=== PATIENT | male | born 1995 ===

== ENCOUNTER 2019-02-03 11:26 | Day surgery (SDC) | payer OTHER ==
[~2019-02-03] VITALS: Ht 176.5 cm; Wt 71.7 kg
[2019-02-03] VITALS (10 sets, daily range): BP systolic 118–132; BP diastolic 48–75
--- NOTE | 2019-02-03 07:58 | Pre-Procedure Note/Attestation ---
Pre-Procedure Note/Attestation Complete Prior to Procedure Planned Procedure: right Procedure Narrative: painful hardware Indications for Procedure Pre-Operative Diagnosis: removal painful hardware right knee Attestation I attest that I discussed the nature of the procedure; its benefits; risks and complications; and alternatives (and the risks and benefits of such alternatives ), prior to the procedure, with the patient (or the patient's legal sales representative groceries). I attest that, if there was a reasonable possibility of needing a blood transfusion, the patient (or the patient's legal sales representative groceries) was given the [facility] standardized written summary, pursuant to the [place] Blood Safety Act ([place] Health and Safety Code # 1645, as amended). I attest that I re-evaluated the patient just prior to the surgery and that there has been no change in the patient's H&P, except as documented below: Sanjiv Graf MD Feb 03, 2019 07:58
--- NOTE | 2019-02-03 08:00 | Operative Note - PDOC ---
Operative Note Operative Note Pre-op Diagnosis: removal painful hardware right elbow Procedure: seee op report Post-op Diagnosis: same as pre-op plus Operative Findings: consistent w/pre-op dx studies Anesthesia: general Specimen: none Complications: none Condition: stable Estimated Blood Loss: none Implant(s) used?: No Sanjiv Graf MD Feb 03, 2019 08:00
[~2019-02-03 11:26] MED LIST: Bacitracin 50000 Units Vial ONE; Bupivacaine 0.25% Inj 30ml INJ ONE; D5 1/2NS 1,000 ML IV SCH; HYDROcodone/Acetamin 5/325 tab ORAL PRN; HYDROmorphone 1mg/ml Carpuject SUBQ PRN; Tylenol #3 tab (300mg/30mg) ORAL PRN; ceFAZolin 1gm IVPB IVPB ONE; celeBREX 200mg Cap **SURGERY PATIENTS ONLY ORAL ONE; oxyCONTIN 20mg tab ORAL ONE
[2019-02-03] MEDS ORDERED: NKM (12:05)
[2019-02-03] MEDS ORDERED: oxyCONTIN 20mg tab ORAL ONE (12:16)
[2019-02-03] MEDS ORDERED: celeBREX 200mg Cap **SURGERY PATIENTS ONLY ORAL ONE (12:16)
[2019-02-03] MEDS ORDERED: NS Irrig 1000ml ONE (12:30)
[2019-02-03] MEDS ORDERED: LR 1000ml ONE (12:30)
[2019-02-03] MEDS ORDERED: Sterile Water Irrig 1000ml IRRIG ONE (12:30)
[2019-02-03] MEDS ORDERED: Succinylcholine 20mg/ml 10ml vial ONE (12:32)
[2019-02-03] MEDS ORDERED: Morphine Sulfate 10mg/ml Inj ONE (12:35)
[2019-02-03] MEDS ORDERED: Midazolam 2mg/2ml Inj ONE (12:35)
--- NOTE | 2019-02-03 13:12 | Anethesia Preoperative Eval ---
Anesthesia Pre-op PMH/ROS General Date of Evaluation: Feb 03, 2019 Time of Evaluation: 13:10 Anesthesiologist: jay ASA Score: ASA 2 Mallampati Score Class I : Soft palate, uvula, fauces, pillars visible Class II: Soft palate, uvula, fauces visible Class III: Soft palate, base of uvula visible Class IV: Only hard plate visible Mallampati Classification: Class II Surgeon: moustapha Diagnosis: hardware in right elbow Surgical Procedure: removal of right elbow hardware Anesthesia History: none Social History: smoking, current smoker Family History: no anesthesia problems Allergies: Coded Allergies: No Known Allergies (Unverified , 02/02/19) Medications: see eMAR Patient NPO?: Yes NPO Date: Feb 03, 2019 NPO Time: 00:01 Past Medical History Cardiovascular: Denies: HTN, CAD, [place], valve dz, arrhythmia, other Pulmonary: Denies: asthma, COPD, BEC[place], other Gastrointestinal/Genitourinary: Denies: GERD, CRI, ESRD, other Neurologic/Psychiatric: Denies: dementia, CVA, depression/anxiety, TIA, other Endocrine: Denies: DM, hypothyroidism, steroids, other HEENT: Denies: cataract (L), cataract (R), glaucoma, [place] (L), [place] (R), other Hematology/Immune: Denies: anemia, DVT, bleeding disorder, other Musculoskeletal/Integumentary: Denies: OA, RA, DJD, DDD, edema, other PSxH Narrative: elbow surgery Anesthesia Pre-op Phys. Exam Physician Exam Last Vital Signs Date Time Temp Pulse Resp B/P (MAP) Pulse Ox O2 Delivery O2 Flow Rate FiO2 02/03/19 12:07 98.0 67 20 127/75 99 Room Air Constitutional: NAD Neurologic: CN 2-12 intact Cardiovascular: RRR Respiratory: CTA Gastrointestinal: S/NT/ND Airway Exam Mallampati Classification 2 Mallampati Score: Class II MO: full Neck: normal TMD: 2fb ROM: full Dentures: no upper, no lower Anesthesia Pre-op A/P Studies Pre-op Studies: EKG - sr Risk Assessment & Plan Plan: general Pre-Antibiotics Drug: ancef Given Within 1 Hr of Incision: Yes Time Given: 12:50 Francia Sheridan CRNA Feb 03, 2019 13:12
[2019-02-03] MEDS ORDERED: Acetaminophen (Non formulary) 100 ML IV ONE (13:15)
[2019-02-03] MEDS ORDERED: Hydromorphone 0.5mg/0.5ml inj IVP PRN (13:15)
[2019-02-03] MEDS ORDERED: Metoclopramide 10mg/2ml Inj IVP PRN (13:15)
[2019-02-03] MEDS ORDERED: fentaNYL 100 mcg/2 mL IV PRN (13:15)
[2019-02-03] MEDS ORDERED: Ketorolac 30mg Inj ONE (13:21)
[2019-02-03] MEDS ORDERED: Bacitracin 50000 Units Vial ONE (13:24)
[2019-02-03] MEDS ORDERED: Propofol 200mg/20ml IV ONE (13:25)
[2019-02-03] MEDS ORDERED: Lidocaine 1% MPF 10mg/ml 5ml ONE (13:25)
[2019-02-03] MEDS ORDERED: Bupivacaine 0.25% Inj 30ml INJ ONE (13:31)
[2019-02-03] MEDS ORDERED: Hydrogen Peroxide 473ml Bottle TOPIC ONE (13:43)
[2019-02-03] MEDS ORDERED: fentaNYL 100 mcg/2 mL IV ONE (14:00)
--- NOTE | 2019-02-03 14:44 | Immediate Post-Op Evaluation ---
Immediate Post-Op Evalulation Immediate Post-Op Evalulation Procedure: hardware removal elbow Date of Evaluation: Feb 03, 2019 Time of Evaluation: 14:40 IV Fluids: 1000 Estimated Blood Loss: 5 Blood Pressure Systolic: 132 Blood Pressure Diastolic: 68 Pulse Rate: 68 Respiratory Rate: 14 O2 Sat by Pulse Oximetry: 100 Temperature (Fahrenheit): 97.4 Nausea: No Vomiting: No Complications none Patient Status: awake, reacts, patent Hydration Status: adequate Drug: ancef Given Within 1 Hr of Incision: Yes Time Given: 12:40 Francia Sheridan CRNA Feb 03, 2019 14:44
--- NOTE | 2019-02-03 22:15 | Operative Note - Dictated ---
DATE OF OPERATION: 02/03/2019 PREOPERATIVE DIAGNOSES: 1. Status post ORIF right distal humerus and olecranon fracture. 2. Right elbow painful hardware. 3. Possible sinus tract versus granuloma. PROCEDURE: 1. Removal of right painful hardware 2 plates, multiple screws. 2. Debridement, right elbow granuloma. 3. Revision of scar measuring 8 cm. SURGEON: Sanjiv Graf M.D. ANESTHESIA: General. INDICATION FOR PROCEDURE: The patient is a pleasant gentleman, who had a pretty significant injury who was diagnosed with distal humerus fracture who underwent an open reduction internal fixation of the distal humerus and olecranon. The patient subsequently had restricted range of motion and pain in the right elbow and started developing some swelling along the posterior aspect of the elbow as well. Given the pain and the swelling, it was felt that it maybe irritation from the hardware and therefore removal of the hardware is recommended. Risks, limitations, expectations, complications of procedure discussed in detail. All questions addressed. DESCRIPTION OF PROCEDURE: After informed consent was obtained, the patient was brought to the operating room. The patient was placed under general anesthesia. The patient was carefully placed in lateral decubitus position. Right shoulder was prepped and draped in a sterile manner. Previous skin incision marked out. The previous scar was coaxed out. The area where this skin was somewhat attenuated then was dissected out. He had some fibrinous tissue extending along to the olecranon plate. Olecranon plate was first identified proximally and distally. The screws were removed. The fibrinous tissue was then debrided. There was no obvious gross pus. Once that was done, the lateral plate was identified. The screws were removed. Of note, there was one broken screw in the humerus and one in olecranon where the screw had broken and therefore it was noted down to remove it when it was attempted given that they were within the confines of the bone. At this point, 2 additional screws with washers along the lateral epicondyle were identified and removed. Once all the hardware was removed, wound was copiously irrigated with 3 L bacitracin irrigation. Once healthy bleeding tissue was reestablished, the interval lateral to the triceps was approximated with #1 Vicryl suture. The interval between the ECU and the FCU was approximated with #1 Vicryl sutures. Once the fascia was approximated, the subcutaneous tissue was approximated using 2-0 Vicryl sutures. Skin was then approximated with 4-0 Monocryl sutures. Dermabond dressing was applied. The patient was awoken and taken to recovery room with stable vital signs. ESTIMATED BLOOD LOSS: 25 mL. COMPLICATIONS: None. SPECIMENS: None. EXPLANTS: Two plates and multiple screws including 2 separate screws and washers. Sanjiv Graf M.D. DR: TIERRA JOB#: [id number] CC:
[2019-02-07 15:39] VITALS: BP 125/55
--- NOTE | 2019-02-07 15:39 | 48 Hour Post Anesthesia Eval ---
Post Anesthesia Evaluation Procedure: hardware removal elbow Date of Evaluation: Feb 07, 2019 Time of Evaluation: 15:38 Blood Pressure Systolic: 125 0: 55 Pulse Rate: 66 Respiratory Rate: 15 O2 Sat by Pulse Oximetry: 98 Airway: patent Nausea: No Vomiting: No Hydration Status: adequate Mental Status/LOC: patient returned to baseline Follow-up Care/Observations: na Post-Anesthesia Complications: none Follow-up care needed: N/A Francia Sheridan CRNA Feb 07, 2019 15:39
== END 2019-02-03 16:50 | disposition home or self-care (01) ==
LOC: SDS 11:26
DX: T85.848A Pain due to other internal prosthetic devices, implants and grafts, initial encounter (principal); F17.200 Nicotine dependence, unspecified, uncomplicated; X58.XXXA Exposure to other specified factors, initial encounter; Y92.9 Unspecified place or not applicable
CPT/HCPCS: 20680; 97597; J0330; J0690; J1885; J2250; J2270; J2405; J2704; J3010; J3370; J3490; 94003; 94150